=== PATIENT | male | born 1965 | race Caucasian/White ===

== ENCOUNTER → 2020-03-23 13:56 | Outpatient (CLI) | payer BC, SELFPAY ==
[2020-03-23 15:51] LABS: Coronavirus 19 IgG Antibody Positive (Negative); Coronavirus 19 IgM Antibody Negative (Negative)
== END ==
PROVIDERS: Visit Provider Internal Medicine Gastroenterology
DX: Z01.812 Encounter for preprocedural laboratory examination (principal); Z86.16 Personal history of COVID-19; Z12.11 Encounter for screening for malignant neoplasm of colon
CPT/HCPCS: 36415; 86328

== ENCOUNTER 2020-03-26 08:50 | Day surgery (SDC) | payer BC, SELFPAY ==
[2020-03-23 12:49] VITALS: BMI 34.9
[2020-03-26] VITALS (8 sets, daily range): BP systolic 113–142; BP diastolic 71–78; PULSE 18–75; RESP 16–18; TEMP 36.3–36.4; O2SAT 95–99
[2020-03-26 09:31] LABS: POC Glucose,Bedside 122 (70-110)
--- NOTE | 2020-03-26 10:25 | P.PN_ITS ---
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 No: Pacemaker Amputation: No Fractures: No - *Social History Alcohol Intake: never Alcohol Intake Frequency:: 0-2 drinks per day (non) Substance Use Type: denies use *Occupational Status:: employed Housing: house Household Members: spouse *Travel in the last 8 weeks: None Family Hx:: No significant family history
--- NOTE | 2020-03-26 10:55 | P.PCN_ITS ---
[facility] Procedure Note Procedure Note:: Colonoscopy Procedure Report: Colonoscopy with cold snare polypectomy Endoscopist: Maximino Bruno II, MD Referring physician: David Limon MD Date of Procedure: March 26, 2020 Equipment: Olympus 180 variable stiffness pediatric colonoscope Sedation: MAC sedation Indication: Mr. Bernal is a 54-year-old gentleman who is here for diagnostic colonoscopy. The patient did have recent periumbilical abdominal pain that lasted for approximately 5 days. He reports pain just above the umbilicus across the abdomen and some left upper quadrant or left-sided abdominal pain. 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 He may skip 2 to 3 days without a bowel movement. He reports no gassiness, bloating, melena or rectal bleeding. He has lost 65 pounds in the last couple of years but this has been intentional. He did have prior cholecystectomy 7 or 8 years ago. He reports no family history of colon cancer. This is his first colonoscopy. Procedure: Prior to the procedure, a history and physical exam was performed, and patient's medications and allergies were reviewed. The risks, benefits and alternatives of the sedation and procedure were discussed with the patient. All questions were answered and informed consent was obtained. The patient was brought to the procedure room. Patient identification and proposed procedure were verified by the physician and the nurse. The patient was placed in a left lateral decubitus position and the scope was passed under direct vision. Throughout the procedure, the patient's blood pressure, pulse, and oxygen saturations were monitored continuously. The colonoscopy was accomplished without difficulty. The patient tolerated the procedure well. Findings: On digital rectal examination there was normal rectal tone. There were no external hemorrhoids. The prostate was very mildly firm but symmetric, 2+ without nodules. The colonoscope was introduced through the anal canal to the rectum and advanced to the cecum. The ileocecal valve and appendiceal orifice were identified. The scope was advanced a short distance into the ileum which appeared grossly normal. The scope was then withdrawn into the colon. The cecum, ascending, transverse, descending and sigmoid colon were grossly normal. There were 2 polyps in the rectosigmoid (4 and 5 mm) and one polyp in the rectum (5 mm) which were removed via cold snare polypectomy. There were no mucosal abnormalities identified. Upon retroflexion within the rectum there were 1-2 internal hemorrhoids.The preparation was excellent throughout with Roosevelt Preparation Score of 9. The cecal time was 14 minutes. Impression: 1. Diminutive colonic polyps x3 2. Grade 1-2 internal hemorrhoids Plan: There was no etiology for the patient's pain across the periumbilical region. If this were to recur I would consider checking liver and pancreatic chemistries as well as imaging study/CAT scan of the abdomen and pelvis. Certainly, infracolic as opposed to supracolic Carmen-en-Y gastric bypasses have been associated with PSBO. I will follow up the polyp pathology and recommend repeat colonoscopy again in 5 years based upon the polyp histology. I would encourage a fiber bowel regimen on a long-term daily maintenance basis.
== END 2020-03-26 11:56 | disposition home or self-care (01) ==
LOC: OUTP 08:53
PROVIDERS: PCP Family Medicine; Visit Provider Internal Medicine Gastroenterology
PROC: 0DJD8ZZ Inspection of Lower Intestinal Tract, Via Natural or Artificial Opening Endoscopic (ICD-10-PCS; CPT 45378; principal; 2020-03-26 10:00)
DX: Z98.84 Bariatric surgery status (principal); Z90.49 Acquired absence of other specified parts of digestive tract; K63.5 Polyp of colon; K64.0 First degree hemorrhoids; E11.9 Type 2 diabetes mellitus without complications; Z72.89 Other problems related to lifestyle; G47.33 Obstructive sleep apnea (adult) (pediatric); F41.9 Anxiety disorder, unspecified; Z87.39 Personal history of other diseases of the musculoskeletal system and connective tissue; Z79.84 Long term (current) use of oral hypoglycemic drugs; Z79.899 Other long term (current) drug therapy
CPT/HCPCS: 45385; 82962